=== PATIENT | female | born 2000 | race Two or more races ===

== ENCOUNTER 2022-02-09 21:39 | Emergency (ER) | payer OTHER ==
[~2022-02-09] VITALS: Ht 157.5 cm; Wt 86.2 kg
[2022-02-09] MEDS ORDERED: PRENA1 CHEW TA1.4 MG PO (22:19)
[2022-02-10] MEDS ORDERED: BUDESONIDE0.5 MG/2 M IH (03:35)
[2022-02-10] MEDS ORDERED: OSEL75CA PO (03:35)
[2022-02-10] MEDS ORDERED: IPRAT-ALBUT 0.5-3 ML IH (03:35)
== END 2022-02-10 03:46 ==
LOC: ER 21:39
DX: O98.511 Other viral diseases complicating pregnancy, first trimester (principal); Z3A.13 13 weeks gestation of pregnancy; E06.0 Acute thyroiditis; J98.01 Acute bronchospasm; Z20.822 Contact with and (suspected) exposure to COVID-19; R50.9 Fever, unspecified; R11.2 Nausea with vomiting, unspecified

== ENCOUNTER 2022-04-02 08:10 | Outpatient (CLI) | payer OTHER ==
[~2022-04-02 08:10] MED LIST: BUDESONIDE0.5 MG/2 M IH; IPRAT-ALBUT 0.5-3 ML IH; OSEL75CA PO; PRENA1 CHEW TA1.4 MG PO
== END 2022-04-02 10:15 | disposition home or self-care (01) ==
LOC: PRENATAL 08:10
PROVIDERS: ATTEND Obstetrics & Gynecology Maternal & Fetal Medicine
DX: O35.9XX0 Maternal care for (suspected) fetal abnormality and damage, unspecified, not applicable or unspecified (principal); O35.3XX0 Maternal care for (suspected) damage to fetus from viral disease in mother, not applicable or unspecified; O99.210 Obesity complicating pregnancy, unspecified trimester; Z3A.20 20 weeks gestation of pregnancy